=== PATIENT | female | born 1980 | race African-American/Black ===

== ENCOUNTER 2019-06-19 22:58 | Emergency (ER) | payer MEDICARE, MEDICAID ==
[~2019-06-19] VITALS: Ht 167.6 cm; Wt 66.0 kg
[~2019-06-19 22:58] MED LIST: ACET-3161 PO; BIRTH CONTROL
[2019-06-20 03:00] VITALS: BP 134/75
== END 2019-06-20 03:27 | disposition home or self-care (01) ==
LOC: ER 22:58
DX: R10.2 Pelvic and perineal pain (principal); Z79.899 Other long term (current) drug therapy
CPT/HCPCS: 99281; 99283